=== PATIENT | male | born 1950 | race Caucasian/White ===

== ENCOUNTER 2021-10-03 13:31 | Emergency (ER) | payer OTHER, MEDICARE ==
[~2021-10-03] VITALS: Ht 213 cm; Wt 116.0 kg
[2021-10-03] MEDS ORDERED: fentaNYL INJ 100 MCG/2 ML AMP IVP STA ×2 (14:06→14:55)
--- NOTE | 2021-10-03 14:10 | ED Fall/Injury ---
General Stated Complaint: FALL, L WRIST/ BACK PAIN Source: patient Exam Limitations: no limitations (TANYA JOAQUIN) History of Present Illness Date Seen by Provider: Oct 03, 2021 Time Seen by Provider: 14:07 Initial Comments Patient is a 71-year-old male who presents to the ED for left wrist and back pain. Patient fell 1 hour ago. 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 Patient states he was walking backwards when he stepped on a person on the ground fell backwards extended out left hand and hitting his lower back. Denies hitting his head or loss of consciousness. Not currently on blood thinners. He reports some neck tightness and discomfort with no pain with range of motion of the neck. Reports pain in his lower back with radiation into the bilateral buttock. Denies of any bowel or urine incontinence, saddle paresthesia, lower extremity weakness. He does have swelling to the left wrist with a slight deformity. Denies taking thing for pain. Patient Was brought to ED by POV. (TANYA JOAQUIN) Allergies and Home Medications Allergies Coded Allergies: No Known Drug Allergies (Unverified , 10/03/21) Patient Home Medication List Home Medication List Reviewed: Yes (TANYA JOAQUIN) Cyclobenzaprine HCl (Cyclobenzaprine HCl) 10 Mg Tablet, 10 MG PO TID Prescribed by: JOSIAH BARTON on 10/03/21 1529 Hydrocodone/Acetaminophen (Hydrocodone-Acetamin 5-325 mg) 5 Mg-325 Mg Tablet, 1 TAB PO Q4H PRN for PAIN-MODERATE (5-7) Prescribed by: JOSIAH BARTON on 10/03/21 1530 Review of Systems Review of Systems Constitutional: No chills, No diaphoresis Eyes: Denies Blurred Vision, Denies Drainage, Denies Inflammation, Denies Pain Ears, Nose, Mouth, Throat: denies ear pain, denies ear discharge Respiratory: No cough, No short of breath Cardiovascular: No chest pain Gastrointestinal: No abdominal pain, No diarrhea, No nausea, No vomiting Genitourinary: No discharge Musculoskeletal: back pain, joint pain, joint swelling, muscle pain, neck pain Skin: change in color (TANYA JOAQUIN) All Other Systems Reviewed Negative Unless Noted: Yes (ATNYA JOAQUIN) Physical Exam Vital Signs Vital Signs - First Documented 10/03/21 13:53 Temp 37.0 Pulse 64 Resp 18 B/P (MAP) 160/91 (114) (TRAY KENDALL MD) Vital Signs Capillary Refill : (TANYA JOAQUIN) Height, Weight, BMI Height: '" Weight: lbs. oz. kg; BMI Method: General Appearance: WD/WN, no apparent distress HEENT: PERRL/EOMI, normal ENT inspection, TMs normal, pharynx normal Neck: full range of motion, supple, other (Bilateral cervical paraspinal muscle tenderness) Cardiovascular: regular rate, rhythm, no edema, no gallop, no JVD Respiratory: chest non-tender, lungs clear, normal breath sounds, no respiratory distress, no accessory muscle use Gastrointestinal: normal bowel sounds, non tender, soft, no organomegaly Back: vertebral tenderness (Thoracic and lumbar midline tenderness. Bilateral lumbar paraspinal muscle tenderness. Pain with movement. No swelling, erythema or ecchymosis) Extremities: other (Tenderness to palpate left dorsum and volar wrist. Swel ling noted on the dorsum side. Slight deformity with normal range of motion with pain and discomfort) (TANYA JOAQUIN) [place] Coma Score Best Eye Response: (4) Open Spontaneously Best Verbal Response: (5) Oriented Best Motor Response: (6) Obeys Commands Sae Total: 15 (TANYA JOAQUIN) Procedures/Interventions Splinting and Joint Reduction : Pre-Proc Neuro Vasc Exam: normal Post-Proc Neuro Vasc Exam: normal Pre-Procedure NV Exam: Yes Progress Sugar-tong splint was placed to the left wrist. Neurovascularly intact pre and post splint. No evidence of compartment syndrome. Ortho-Glass splint was placed with padding. Patient was placed in sling. Tolerated procedure well. (TANYA JOAQUIN) Progress/Results/Core Measures Results/Orders Medications Given in ED Current Medications Medications Dose Ordered Sig/Priya Route Start Time Stop Time Status Last Admin Dose Admin Orphenadrine Citrate 60 mg ONCE ONCE IM 10/03/21 15:00 10/03/21 15:01 DC 10/03/21 15:20 60 MG (TRAY KENDALL MD) Vital Signs/I&O 10/03/21 10/03/21 13:53 16:09 Temp 37.0 37.0 Pulse 64 67 Resp 18 18 B/P (MAP) 160/91 (114) 147/90 (TRAY KENDALL MD) Departure Communication (PCP) Patient with a mechanical fall. Complain of lower back pain and left wrist pain. Swelling noted to the left dorsum and volar wrist. Limited active range of motion. Slight deformity. X-ray shows a comminuted and impacted distal radius fracture intra-articular. Did note a elbow 1 superior anterior comp ression fracture with 15 to 20% height loss. CT scan of the head cervical neck and thoracic spine was otherwise unremarkable. Was given IV fentanyl and Norflex here in the ED. Patient with muscle spasming and continued pain. No bowel or urine incontinence, saddle paresthesia. Patient was discussed with orthopedic Dr. Law who recommends follow-up outpatient [facility]. Patient is from [place] and will follow-up with his orthopedic. Dr. Smith friend of patient was here helping assist patient and placed in splint. Patient will be discharged with pain medication. (TANYA JOAQUIN) Impression Primary Impression: Wrist fracture Additional Impression: Lumbar compression fracture Disposition: 01 HOME, SELF-CARE Condition: Stable Departure-Patient Inst. Decision time for Depature: 15:28 (TANYA JOAQUIN) Referrals: NO,LOCAL PHYSICIAN (PCP/Family) Primary Care Physician Patient Instructions: Vertebral Compression Fracture (DC), Wrist Fracture (DC) Scripts Hydrocodone/Acetaminophen (Hydrocodone-Acetamin 5-325 mg) 5 Mg-325 Mg Tablet 1 TAB PO Q4H PRN for PAIN-MODERATE (5-7), #20 TAB Prov: TANYA JOAQUIN 10/03/21 Cyclobenzaprine HCl (Cyclobenzaprine HCl) 10 Mg Tablet 10 MG PO TID for Muscle Spasms, #30 TAB Prov: TANYA JOAQUIN 10/03/21 ATTENDING PHYSICIAN NOTE: I was physically present as attending physician in the emergency department during the care of this patient, but I was not directly involved in the decision making or delivery of care for this patient. (BRUEGGEMANNTRAY ZACHARY A PA Oct 03, 2021 14:10 TRAY KENDALL MD Oct 03, 2021 19:17
--- NOTE | 2021-10-03 14:21 | Diagnostic Imaging Report ---
Indication: Fall. Time of Exam: 2:18 PM 3 views left wrist were obtained. There is a comminuted impacted and intra-articular fracture of the distal radius. No significant displacement or angulation is seen. Distal ulna appears intact. Carpus appears intact. There is overlying soft tissue swelling. IMPRESSION: Comminuted and impacted intra-articular distal radius fracture. Dictated by: Dictated on workstation # [id number]
[2021-10-03] MEDS ORDERED: ORPHENADRINE 60 MG/2 ML (NORFLEX) AMP (ED ONLY) IM ONE (15:00)
--- NOTE | 2021-10-03 15:07 | Diagnostic Imaging Report ---
PROCEDURE: CT head and CT cervical spine without contrast. TECHNIQUE: Multiple contiguous axial images were obtained through the brain and cervical spine without the use of intravenous contrast. Sagittal and coronal reformations through the cervical spine were then performed. Auto Exposure Controls were utilized during the CT exam to meet ALARA standards for radiation dose reduction. INDICATION: Fall, pain. I have no priors. FINDINGS: There is no hemorrhage, hydrocephalus, cerebral edema, mass, mass effect nor evidence for an elevation of intracerebral pressures. There are no abnormal extra-axial collections. No sulcal effacement. No focal or generalized cortical edema. No evidence for elevated pressures. The calvarium intact. No hemo-sinus. No pneumocephalus. CT cervical: Body heights maintained, alignment anatomic. The facet relationships unremarkable. Spinal canal patent. No paravertebral mass, hemorrhage or fluid collection. The central skull base appeared intact. No cervical fracture. IMPRESSION: CT head: No hemorrhage, fracture or acute-appearing abnormalities Cervical spine: No cervical spinal fracture or traumatic malalignment. Dictated by: Dictated on workstation # [id number]
--- NOTE | 2021-10-03 15:13 | Diagnostic Imaging Report ---
CLINICAL INDICATION: Patient is status post fall on the left wrist and back. EXAM: Axial CT scan of the thoracic and lumbar spine performed without IV contrast. Sagittal and coronal reformations were performed. Bone and soft tissue windows were created. Auto Exposure Controls were utilized during the CT exam to meet ALARA standards for radiation dose reduction. COMPARISON: None. FINDINGS: There is an acute compression fracture deformity involving the anterior superior aspect of the L1 vertebra with roughly 15-20% loss of height. Only the anterior column is involved. There is no other fracture seen involving the CT of the thoracic or lumbar spine. There are multilevel thoracic spine hypertrophic spurs and facet arthropathy. There are multilevel lumbar spine degenerative spurs and facet arthropathy. There are chronic Schmorl's nodes seen throughout the lumbar spine. There is atelectasis involving the posterior aspects of both lungs. 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 IMPRESSION: 1: There is an acute mild compression fracture deformity involving the superior anterior aspect of the L1 vertebra. 2: There is no other concern for fracture involving the thoracic or lumbar spine. 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 Results of this report regarding L1 vertebral body fracture were discussed with JOSIAH Wakefield, via the telephone on 10/03/2021 at 1458 hours. Dictated by: Dictated on workstation # [id number]
[2021-10-03] MEDS ORDERED: ACHD5005 PO (15:29)
[2021-10-03] MEDS ORDERED: CYCL10TA25 PO (15:29)
[2021-10-03 16:09] VITALS: BP 147/90
[2021-10-04] MEDS ORDERED: ACHD5005 PO (11:36)
== END 2021-10-03 16:05 | disposition home or self-care (01) ==
LOC: ER 13:35
DX: S62.102A Fracture of unspecified carpal bone, left wrist, initial encounter for closed fracture (principal); S32.009A Unspecified fracture of unspecified lumbar vertebra, initial encounter for closed fracture; W18.30XA Fall on same level, unspecified, initial encounter; Y93.01 Activity, walking, marching and hiking; Y92.22 Religious institution as the place of occurrence of the external cause; Y99.0 Civilian activity done for income or pay
CPT/HCPCS: 29105; 70450; 72125; 72128; 72131; 73110; A4565